=== PATIENT | male | born 1960 | race Caucasian/White ===

== ENCOUNTER 2022-11-30 19:20 | Emergency (ER) | payer BC, SELFPAY ==
[2022-11-30 19:30] VITALS: BP 139/81; PULSE 75; RESP 16; TEMP 36.3; O2SAT 100; BMI 19.3
[2022-11-30] MEDS: Lidocaine 1% (20 ml mdv) 20 ML Vial INFILT (20:37)
--- NOTE | 2022-11-30 21:25 | EX.ED.GENINJ ---
HPI History of Present Illness Chief Complaint: Laceration Narrative Narrative: Patient presents with a laceration to the left elbow just prior to arrival. This was in his garage. Tetanus is up-to-date. PFSH PFSH Medical History no medical history Home Medications NK 11/30/22 [History Last Taken Unknown] Allergy/AdvReac Type Severity Reaction Status Date / Time No Known Allergies Allergy Verified 11/30/22 19:30 Surgical History H/O enucleation of right eyeball Social History Smoking Status: Current every day smoker tobacco type: cigarettes ROS ROS ED ROS Narrative Past medical history: none Medications: Reviewed Social history: Noncontributory Review of systems: Musculoskeletal: Elbow laceration as in HPI Skin: As above Neurological: No weakness or paresthesias Hematologic: No easy bleeding or easy bruising EXAM Physical Exam Narrative Exam Narrative: Physical exam General: Patient does not appear in significant distress . Head: Normocephalic, Atraumatic Neck: No C-spine tenderness Cardiovascular: Normal distal pulses Back: Nontender, Normal Inspection. Extremities: 5 cm left elbow laceration, no bony tenderness no deep involvement Skin: Lack as above Neurological: Normal strength and sensation Const Vital Signs: 11/30/22 19:30 Temperature 97.3 F L Temperature Source Temporal Pulse Rate 75 Respiratory Rate 16 Blood Pressure 139/81 H Blood Pressure Mean 100 Pulse Ox 100 PROC Procedures Lacerations Elbow laceration: Length: 1.97 in Depth: Skin Shape: Linear Prep: Shure-Clens Laceration repair: Foreign material removed, Lidocaine and Local Number of Sutures/[place]: 6 Suture Information: Ethilon and 4-0 MDM MDM MDM Narrative Medical decision making narrative: Laceration was sutured see procedure note. At this time I do not believe the patient needs an elbow x-ray, there was no significant impact of the elbow. Tetanus is up-to-date. Wound is cleaned well and does not need prophylactic antibiotics. We will discharge in stable condition Discharge Plan Triage Chief Complaint: Laceration ED Provider: Sandeep Chairez Dx/Rx/DC Orders Clinical Impression: Laceration of elbow, left Prescriptions: No Action NK Primary Care Provider: Care Physician,No Primary Referrals: Care Physician,No Primary [Primary Care Provider] - 3-5 Days Disposition Disposition: Home, Self Care
[2022-11-30 21:40] VITALS: BP 112/60; PULSE 58; RESP 18; O2SAT 100
== END 2022-11-30 21:41 | disposition home or self-care (01) ==
PROVIDERS: Emergency Provider Emergency Medicine; Visit Provider Emergency Medicine
DX: S51.012A Laceration without foreign body of left elbow, initial encounter (principal); F17.210 Nicotine dependence, cigarettes, uncomplicated; X58.XXXA Exposure to other specified factors, initial encounter; Y92.59 Other trade areas as the place of occurrence of the external cause
CPT/HCPCS: 12002; 99284